=== PATIENT | male | born 1950 | race Caucasian/White ===

== ENCOUNTER 2023-10-21 21:24 | Inpatient (IN) | payer MEDICARE, OTHER ==
[2023-10-21] MEDS ORDERED: Sodium Chloride 0.9% 10 ML Syringe FLUSH PRN (22:17)
[2023-10-21] MEDS: Sodium Chloride 0.9% 1,000 ML IV STA (22:29)
[2023-10-21] MEDS: fentaNYL 100 MCG/2 ML SDV IVPUSH ONE (22:29)
[2023-10-21] MEDS: Ondansetron 4 MG/2 ML SDV IVPUSH ONE (22:29)
[2023-10-21 22:34] LABS: BASOPHILS ABSOLUTE AUTO 0.03 K/uL (0.00-0.10); BASOPHILS PERCENT AUTO 0.3 % (0.1-1.3); EOSINOPHILS ABSOLUTE AUTO 0.14 K/uL (0.00-0.40); EOSINOPHILS PERCENT AUTO 1.6 % (0.0-5.4); IMMATURE GRAN ABSOLUTE AUTO 0.08 K/uL (0.00-0.23); IMMATURE GRAN PERCENT AUTO 0.9 % (0.0-0.7); LYMPHOCYTES ABSOLUTE AUTO 1.36 K/uL (0.8-3.3); LYMPHOCYTES PERCENT AUTO 15.2 % (11.4-47.7); MEAN CORPUSCULAR HEMOGLOBIN 29.6 pg (31.6-35.5); MEAN CORPUSCULAR HGB CONC 35.4 g/dL (31.6-35.5); MEAN CORPUSCULAR VOLUME 83.5 fL (81.4-99.0); MONOCYTES ABSOLUTE AUTO 0.87 K/uL (0.20-0.90); MONOCYTES PERCENT AUTO 9.7 % (3.3-12.6); NEUTROPHILS ABSOLUTE AUTO 6.48 K/uL (1.0-7.6); NEUTROPHILS PERCENT AUTO 72.3 % (40.0-78.1); PLATELET COUNT,PLT 279 K/uL (130-375); RED BLOOD CELL COUNT 5.75 M/uL (4.14-5.76)
[2023-10-21 22:51] LABS: A/G RATIO 1.1 (1.2-2.2); ALANINE AMINOTRANSFERASE,ALT 55 U/L (12-78); ALBUMIN 3.7 g/dL (3.4-5.0); ALKALINE PHOSPHATASE 70 U/L (46-116); ASPARTATE AMNIOTRANSFERASE,AST 36 U/L (15-37); BILIRUBIN TOTAL 0.9 mg/dL (0.2-1.0); BLOOD UREA NITROGEN,BUN 34 mg/dL (7-18); CALCIUM 8.9 mg/dL (8.5-10.1); CARBON DIOXIDE,CO2 26 mmol/L (21-32); CHLORIDE,CL 100 mmol/L (100-108); CREATININE 1.1 mg/dL (0.8-1.3); EST CRCL DRUG DOSING (CG) 58.02 mL/min; ESTIMATED GFR 70 mL/min (>60); GLUCOSE RANDOM 115 mg/dL (74-106); POTASSIUM,K 3.6 mmol/L (3.6-5.2); PROTEIN TOTAL,TP 7.2 g/dL (6.4-8.2); SODIUM,NA 136 mmol/L (140-148)
[2023-10-21] MEDS: Sodium Chloride 0.9% 80 ML IV STA (22:53)
[2023-10-21] MEDS: Iopamidol 612 MG/ML 100 ML Bottle IV STA (22:53)
[2023-10-21 22:57] LABS: ANION GAP 13.6 mmol/L (5.0-14.0)
[2023-10-21 23:16] LABS: APPEARANCE,URINE CLEAR (CLEAR); BILIRUBIN,URINE NEGATIVE (NEGATIVE); COLOR,URINE YELLOW (YELLOW); GLUCOSE,URINE NEGATIVE (NEGATIVE); KETONES,URINE NEGATIVE (NEGATIVE); LEUKOCYTE ESTERASE,URINE NEGATIVE (NEGATIVE); NITRITE,URINE NEGATIVE (NEGATIVE); OCCULT BLOOD,URINE NEGATIVE (NEGATIVE); PROTEIN,URINE 30 mg/dL (NEGATIVE)
[2023-10-21 23:59] LABS: AMORPHOUS SEDIMENT,URINE NOT SEEN; BACTERIA,URINE FEW; EPITHELIAL CELLS,URINE RARE; MUCUS,URINE NOT SEEN; RBC,URINE 0-5 (0-5); WBC,URINE 0-5 (0-5)
[2023-10-22] MEDS: fentaNYL 100 MCG/2 ML SDV IVPUSH ONE (00:06)
[2023-10-22] MEDS: Lidocaine 4% Top Soln 50 ML Bottle MUCMEM ONE (00:07)
[2023-10-22] MEDS ORDERED: Naloxone 0.4 MG/ML SDV IVPUSH PRN (01:10)
[2023-10-22] MEDS ORDERED: Ondansetron 4 MG/2 ML SDV IV PRN (01:10)
[2023-10-22] MEDS ORDERED: Magnesium Hydroxide 400 MG/5 ML Susp 30 ML Cup PO PRN (01:10)
[2023-10-22] MEDS ORDERED: Sennosides/Docusate Sodium 50-8.6 MG Tab PO PRN (01:10)
[2023-10-22] MEDS ORDERED: Ondansetron 4 MG Tab.DIS PO PRN (01:10)
[2023-10-22] MEDS ORDERED: Acetaminophen 325 MG Tab PO PRN (01:10)
[2023-10-22] MEDS: Sodium Chloride 0.9% 1,000 ML IV SCH (01:15)
[2023-10-22] MEDS: fentaNYL 100 MCG/2 ML SDV IVPUSH PRN (01:43)
[2023-10-22] MEDS: Phenol/Sodium Phenolate Spray 180 ML Bottle MUCMEM PRN (01:45)
[2023-10-22] MEDS: Pantoprazole 40 MG Vial IV SCH (01:46)
[2023-10-22 05:43] LABS: HEMATOCRIT 46.2 % (38.4-49.7); HEMOGLOBIN 16.2 g/dL (12.9-16.9); MEAN CORPUSCULAR HEMOGLOBIN 29.5 pg (31.6-35.5); MEAN CORPUSCULAR HGB CONC 35.1 g/dL (31.6-35.5); MEAN CORPUSCULAR VOLUME 84.2 fL (81.4-99.0); RED BLOOD CELL COUNT 5.49 M/uL (4.14-5.76); WHITE BLOOD CELL COUNT,WBC 8.6 K/uL (3.2-11.0)
[2023-10-22 05:54] LABS: CALCIUM 8.6 mg/dL (8.5-10.1); EST CRCL DRUG DOSING (CG) 63.83 mL/min; POTASSIUM,K 3.4 mmol/L (3.6-5.2)
[2023-10-22 06:08] LABS: ANION GAP 14.4 mmol/L (5.0-14.0)
[2023-10-22] MEDS: fentaNYL 50 MCG/ML SDV IVPUSH PRN (07:36)
[2023-10-22] MEDS: Gabapentin 100 MG Cap PO SCH (08:53)
[2023-10-22] MEDS: Aspirin 81 MG Tab.Chew PO SCH (08:53)
[2023-10-22] MEDS: Potassium Chloride 10 MEQ in Premix Bag 1 BAG IV SCH (08:53)
[2023-10-22] MEDS: Sildenafil 20 MG Tab PO SCH (10:36)
[2023-10-22] MEDS: traZODone 50 MG Tab PO SCH (20:23)
[2023-10-22] MEDS: Melatonin 3 MG Tab PO PRN (20:23)
[2023-10-23 05:56] LABS: CREATININE 0.9 mg/dL (0.8-1.3); EST CRCL DRUG DOSING (CG) 70.92 mL/min; POTASSIUM,K 3.8 mmol/L (3.6-5.2)
[2023-10-23 06:01] LABS: ANION GAP 11.8 mmol/L (5.0-14.0)
[2023-10-23] MEDS: Rosuvastatin 10 MG Tab PO SCH (13:39)
== END 2023-10-23 14:07 | disposition home or self-care (01) | DRG 390 ==
LOC: JP.ED 21:24 → JP.MS 10-22 00:08
PROVIDERS: ADMIT Registered Nurse; ATTEND Internal Medicine
DX: K56.609 Unspecified intestinal obstruction, unspecified as to partial versus complete obstruction (principal); K56.50 Intestinal adhesions [bands], unspecified as to partial versus complete obstruction; K21.9 Gastro-esophageal reflux disease without esophagitis; E78.00 Pure hypercholesterolemia, unspecified; F32.A Depression, unspecified; H91.90 Unspecified hearing loss, unspecified ear; M19.90 Unspecified osteoarthritis, unspecified site; I10 Essential (primary) hypertension; I25.10 Atherosclerotic heart disease of native coronary artery without angina pectoris; I25.2 Old myocardial infarction; Z95.5 Presence of coronary angioplasty implant and graft; Z96.653 Presence of artificial knee joint, bilateral; Z79.82 Long term (current) use of aspirin; Z79.899 Other long term (current) drug therapy; Z98.49 Cataract extraction status, unspecified eye; Z98.890 Other specified postprocedural states; Z85.46 Personal history of malignant neoplasm of prostate
CPT/HCPCS: 36415; 43752; 74018; 74018-26; 74177; 80048; 80053; 81001; 83605; 83690; 85025; 85027; 96361; 96374; 96375; 96376; 99285-25; A9270-GY; J2405; J3010; J3480; J3490; J7030; Q9967